=== PATIENT | female | born 1970 | race Caucasian/White ===

== ENCOUNTER 2019-05-12 19:36 | Emergency (ER) | payer MEDICAID ==
[~2019-05-12] VITALS: Ht 160 cm; Wt 84.8 kg
[2019-05-12 19:40] VITALS: BP 146/78
--- NOTE | 2019-05-12 19:40 | NUR ---
to bed # 06 ambulatory
[2019-05-12] MEDS ORDERED: KETOROLAC 60 MG/2 ML VIAL IM ONE (20:25)
--- NOTE | 2019-05-12 20:29 | NUR ---
BIB SELF C/O JOINT PAIN BUE, RIGHT SHOULDER PAIN, KNEE PAIN X 1 MONTH 12/16. DENIES INJURY. WORSE AT NIGHT. PT REPORTS WAKING UP WITH SWOLLEN JOINTS, JOE IN BILATERAL HANDS. NO FLU/COLD SYMPTOMS REPORTED. NO PMH, NKA
[2019-05-12 21:16] LABS: APPEARANCE,URINE CLEAR (CLEAR); BILIRUBIN,URINE NEGATIVE (NEGATIVE); BLOOD, URINE NEGATIVE (NEGATIVE); COLOR,URINE YELLOW (YELLOW); LEUKOCYTE ESTERASE ,URINE NEGATIVE (NEGATIVE); NITRITE, URINE NEGATIVE (NEGATIVE); UGLUCOSE NEGATIVE (NEGATIVE)
--- NOTE | 2019-05-13 01:29 | NUR ---
BEDSIDE REPORT RECIEVED FROM CHARLA CAPELLAN. ASSUMED CARE AT THIS TIME.
--- NOTE | 2019-05-13 02:20 | NUR ---
PT REPORTS 2/10 PAIN, DECREASED. PAIN IS GENERALIZED BODY ACHES, MOSTLY TO RIGHT SIDE. WILL CONTINUE TO MONITOR.
[2019-05-13 02:30] VITALS: BP 123/73
--- NOTE | 2019-05-13 02:40 | NUR ---
DR. ANSARI AT BEDSIDE EXPLAINING RESULT FINDINGS.
--- NOTE | 2019-05-13 02:56 | NUR ---
Patient discharged with v/s stable. Written and verbal after care instructions given and explained. Patient alert, oriented and verbalized understanding of instructions. Ambulatory with steady gait. All questions addressed prior to discharge. ID band removed. Patient advised to follow up with PMD. Rx of NAPROSYN AND NORCO given. Patient educated on indication of medication including possible reaction and side effects. Opportunity to ask questions provided and answered.
== END 2019-05-13 02:56 | disposition home or self-care (01) ==
LOC: MED 19:36
DX: M65.20 Calcific tendinitis, unspecified site (principal); B34.9 Viral infection, unspecified
CPT/HCPCS: 73020; 73070; 73100; 81003; 81025; 87804; 96372; 99284; J1885; Q0092

== ENCOUNTER 2020-01-03 23:03 | Emergency (ER) | payer MEDICAID ==
[~2020-01-03] VITALS: Ht 160 cm; Wt 84.8 kg
[2020-01-03 23:06] VITALS: BP 141/76
[2020-01-03] MEDS ORDERED: KETOROLAC 30 MG/ML VIAL IVP ONE (23:15)
[2020-01-03] MEDS ORDERED: NACL 0.9% 500 ML IV ONE (23:15)
--- NOTE | 2020-01-03 23:19 | NUR ---
PT TAKEN TO BED 7
--- NOTE | 2020-01-03 23:25 | NUR ---
PT REFUSING PAIN MEDICATION AT THIS TIME. STATES PAIN IS TOLERABLE. WILL CONTINUE TO MONITOR.
--- NOTE | 2020-01-03 23:25 | NUR ---
PT SITTING ON EDGE OF BED. A/O X 4. BREATHING EVEN, UNLABORED. SKIN WARM, DRY. NO ACUTE DISTRESS AT THIS TIME.
[2020-01-03 23:31] LABS: APPEARANCE,URINE SL CLOUDY (CLEAR); BILIRUBIN,URINE NEGATIVE (NEGATIVE); BLOOD, URINE NEGATIVE (NEGATIVE); COLOR,URINE YELLOW (YELLOW); LEUKOCYTE ESTERASE ,URINE NEGATIVE (NEGATIVE); NITRITE, URINE NEGATIVE (NEGATIVE); UGLUCOSE NEGATIVE (NEGATIVE)
--- NOTE | 2020-01-03 23:32 | NUR ---
Dr. Andersen examining patient.
[2020-01-03 23:33] LABS: BASOPHILS % (AUTO) 0.7 % (0.0-2.0); EOSINOPHILS % (AUTO) 0.3 % (0.0-4.0); HEMATOCRIT 35.6 % (36-48); LYMPHOCYTES % (AUTO) 29.6 % (20.5-51.1); MEAN CORPUSCULAR HEMOGLOBIN 21 pg (27-31); MEAN CORPUSCULAR HGB CONC 31 g/dL (33-37); MEAN CORPUSCULAR VOLUME 68.6 fL (80-94); MONOCYTES # (AUTO) 0.5 K/uL (0.8-1.0); MONOCYTES % (AUTO) 7.6 % (1.7-9.3); NEUTROPHILS # (AUTO) 4.3 K/uL (1.8-7.7); NEUTROPHILS % (AUTO) 61.8 % (42.2-75.2); PLATELET COUNT (AUTO) 285 K/uL (140-450); RED BLOOD CELL COUNT(AUTO) 5.19 MIL/uL (4.20-5.40); RED CELL DISTRIBUTION WIDTH 19.2 % (11.6-13.7); WHITE BLOOD COUNT (AUTO) 6.9 K/uL (4.8-10.8)
--- NOTE | 2020-01-03 23:46 | NUR ---
PT TAKEN TO CT
[2020-01-03 23:49] LABS: ALBUMIN 3.8 g/dL (3.4-5.0); ANION GAP 14.4 (8-16); CARBON DIOXIDE 26.1 mmol/L (21-32); CREATININE 0.8 mg/dL (0.6-1.3); POTASSIUM 3.5 mmol/L (3.5-5.1); TOTAL BILIRUBIN 0.2 mg/dL (0.0-1.0)
--- NOTE | 2020-01-03 23:56 | NUR ---
PT RETURN FROM CT
== END 2020-01-04 01:55 | disposition home or self-care (01) ==
LOC: MED 23:03
DX: N10 Acute pyelonephritis (principal); D64.9 Anemia, unspecified
CPT/HCPCS: 36415; 74176; 80053; 81003; 81025; 85025; 96360; 99284; J1885; J7030

== ENCOUNTER 2021-03-23 21:24 | Emergency (ER) | payer MEDICAID ==
[~2021-03-23] VITALS: Ht 160 cm; Wt 81.2 kg
[2021-03-23 21:35] VITALS: BP 147/75
--- NOTE | 2021-03-23 22:20 | NUR ---
PATIENT MOVED TO ER BED 1
--- NOTE | 2021-03-23 22:28 | NUR ---
REPORTS HEADACHE AND DIZZINESS, HAS ALREADY SEEN PCP REGARDING ISSUE AND HAD EXAMS DONE, BUT REQUESTING EVAL DUE TO NO RELIEF. STATES SHE NOW FEELS A BUMP ON HER HEAD AND FEELS THOUGH IT IS GETTING BIGGER
--- NOTE | 2021-03-23 22:33 | NUR ---
PT IS A 50 Y/O F BIB SELF. PT C/O DIZZINESS 6 MONTHS AGO AND PRESSURE ON THE TOP OF HEAD. PT STATES SHE FELT A BUMP ON HER HEAD 2.5 WEEKS. PT COMPAINS OF ROOM SPINNING. PT WENT TO PCP FOR FOLLOWUP AND THEY RECCOMENDED A CT SCAN. NO CT SCAN WAS DONE. PT ALSO C/O OF DIARRHEA. PT STATED AFTER COVID HER STOMACH HAS BEEN SENSITIVE AND HAS HAD DIARRHEA. PT DENIES N/F/V, COUGH , SOB, CHEST PAIN. PT DOES NOT HAVE DIABETES.
[2021-03-23] MEDS ORDERED: MECLIZINE 25 MG TAB PO ONE (22:45)
[2021-03-23 22:56] LABS: APPEARANCE,URINE CLEAR (CLEAR); BILIRUBIN,URINE NEGATIVE (NEGATIVE); BLOOD, URINE NEGATIVE (NEGATIVE); COLOR,URINE YELLOW (YELLOW); LEUKOCYTE ESTERASE ,URINE TRACE (NEGATIVE); NITRITE, URINE NEGATIVE (NEGATIVE); UGLUCOSE NEGATIVE (NEGATIVE)
[2021-03-23 23:04] LABS: RBC,URINE 0-5 /HPF (0-5); WBC,URINE 0-5 /HPF (0-5)
[2021-03-24] MEDS ORDERED: MECL-303 PO (00:22)
--- NOTE | 2021-03-24 00:23 | NUR ---
PATIENT WAS ABLE TO AMBULATE WITH ER MD AT BEDSIDE
--- NOTE | 2021-03-24 00:39 | NUR ---
PATIENT CLEARED FOR DISCHARGE AT THIS TIME. NO FURTHER COMPLAINTS OR CONCERNS FOLLOWING DISCHARGE TEACHING. RX SENT WIHT PATIENT AND WAS ADVISED TO FOLLOW UP WITH PCP./
--- NOTE | 2021-03-24 00:40 | NUR ---
PER ER OKAY TO DISCHARGE WITHOUT COLLECTING UA
[2021-03-24 00:41] VITALS: BP 139/66
--- NOTE | 2021-03-24 00:42 | NUR ---
Chart checked and completed. The patient's care was reviewed and supervised by [facility] ED, RN.
== END 2021-03-24 00:40 | disposition home or self-care (01) ==
LOC: MED 21:54
DX: R42 Dizziness and giddiness (principal); R51.9 Headache, unspecified; H93.13 Tinnitus, bilateral; Z79.899 Other long term (current) drug therapy
CPT/HCPCS: 70450; 81001; 81025; 87086; 99284; J8597

== ENCOUNTER 2021-09-16 19:59 | Emergency (ER) | payer MEDICAID ==
[~2021-09-16] VITALS: Ht 160 cm; Wt 86.2 kg
[~2021-09-16 19:59] MED LIST: MECL-303 PO
[2021-09-16 20:10] VITALS: BP 160/95
--- NOTE | 2021-09-16 20:10 | NUR ---
Naun cage in [facility] - 09/16/21 at 2010 by DEZ patient ambulated to bed 7
--- NOTE | 2021-09-16 20:10 | NUR ---
PT AMBULATED TO BED 7
--- NOTE | 2021-09-16 20:18 | NUR ---
51 Y/O FEMALE BIBS FROM HOME, C/O LOWER BACK PAIN X4 DAYS. PT DESCRIBES BURNING/PRESSURE 4/10, UNPROVOKED, NO TRAUMA NOTED, RADIATES TO STOMACH WITH NAUSEA; PT IS ABLE TO AMBULATE UNASSISTED; CMS INTACT; A/OX4, [facility]-15, UNLABORED RESPIRATIONS. DENIES PMH/RX NKDA
--- NOTE | 2021-09-16 20:25 | NUR ---
PATIENT AMBULATED TO THE RR, URINE COLLECTED
[2021-09-16] MEDS ORDERED: IBUP-2213 PO (21:02)
[2021-09-16] MEDS ORDERED: ACET-10509 PO (21:02)
[2021-09-16] MEDS ORDERED: CEPH250C16 PO (21:04)
[2021-09-16] MEDS ORDERED: IBUPROFEN 600 MG TAB PO ONE (21:10)
[2021-09-16 21:19] VITALS: BP 160/95
--- NOTE | 2021-09-16 21:19 | NUR ---
Patient discharged with v/s stable. Written and verbal after care instructions given Sacroilliac Joint dysfx, UTI and explained. Patient alert, oriented and verbalized understanding of instructions. Ambulatory with steady gait. All questions addressed prior to discharge. ID band removed. Patient advised to follow up with PMD. Rx of Ibuprofen, Cephalexin given.
--- NOTE | 2021-09-16 21:27 | NUR ---
The patient's care was reviewed and supervised by Loren Mccarty RN. Chart checked.
== END 2021-09-16 21:19 | disposition home or self-care (01) ==
LOC: MED 19:59
DX: M46.1 Sacroiliitis, not elsewhere classified (principal); N39.0 Urinary tract infection, site not specified; Z91.09 Other allergy status, other than to drugs and biological substances
CPT/HCPCS: 81002; 81025; 99282; 99283